=== PATIENT | male | born 1930 | race Caucasian/White ===

== ENCOUNTER → 2016-05-11 | Outpatient (CLI) | payer OTHER ==
[~2016-05-11] MED LIST: ACET-1256 PO; ASPCH81X PO; ATEN-173 PO; GALA4SOL PO; LOSA50TA54 PO; LOSA50TA6 PO; MULTTAB PO; NMN10 PO; OXYC-57 PO; SIMV10TA5 PO
== END ==
LOC: C.LABSPEC 17:47
PROVIDERS: ATTEND Nurse Practitioner Adult Health
DX: R31.9 Hematuria, unspecified (principal)

== ENCOUNTER → 2016-05-27 | Outpatient (CLI) | payer OTHER ==
[~2016-05-27] MED LIST changes: +OPTIRAY 320 IV PRN
--- NOTE | 2016-05-27 11:22 | DIAGNOSTIC IMAGING REPORT ---
CT ABD/PELVIS COMBO CLINICAL HISTORY: Hematuria. COMPARISON STUDY: None. TECHNIQUE: Unenhanced images were obtained through the abdomen and pelvis. The patient was injected with 50 cc of Optiray 320. After 5 minute delay, the patient was rescanned in a dynamic helical fashion during the additional administration of 68 cc of Optiray 320. CT DOSE: 666.17 mGy.cm FINDINGS: Lower chest: There are mild dependent atelectatic changes. Liver: The contrast-enhanced liver is normal in size, contour, and attenuation. There is no intrahepatic biliary ductal dilatation. The hepatic veins and portal veins are patent. Gallbladder: Unremarkable. Spleen: Normal in size and attenuation. Pancreas: Unremarkable. Adrenal glands: Unremarkable. Kidneys: No renal or ureteral calculi are visualized. There is a 13 mm bladder calculus. There is a 27 mm left renal cyst. No collecting system or ureteral lesions are visualized. Bowel: There are no transition zones indicate bowel obstruction. There is no evidence of acute diverticulitis. By history the appendix is surgically absent. Peritoneum: There is no intraperitoneal free air or abdominal ascites. There is a fat-containing right groin hernia. Vasculature: The abdominal aorta is normal in course and caliber. Adenopathy: None. Pelvic viscera: There is lobular enlargement of the prostate gland. Skeletal structures: No destructive osseous lesions are seen. IMPRESSION: 1. No solid renal masses identified 2. 27 mm left renal cyst 3. 13 mm bladder calculus 4. Lobular enlargement of the prostate Electronically signed by: Uriel Saldana M.D. 05/27/2016 11:21 AM Dictated Date/Time: 05/27/2016 11:14 AM
== END | disposition home or self-care (01) ==
LOC: C.CTS 10:31
PROVIDERS: ATTEND Nurse Practitioner Adult Health
DX: R31.9 Hematuria, unspecified (principal); N28.1 Cyst of kidney, acquired; N21.0 Calculus in bladder; N40.0 Benign prostatic hyperplasia without lower urinary tract symptoms

== ENCOUNTER 2016-08-16 02:20 | Emergency (ER) | payer OTHER ==
--- NOTE | 2016-08-16 02:31 | EMERGENCY ROOM VISIT NOTE ---
History Report prepared by Day: Maggy Santiago Under the Supervision of: Dr. Fei Bueno M.D. First contact with patient: 02:24 Chief Complaint: UNRESPONSIVE Stated Complaint: UNRESPONSIVE History of Present Illness The patient is a 86 year old male who presents to the Emergency Room with complaints of unresponsiveness. Limited HPI secondary to altered mental status. Lives at local nursing facility in dementia unit for years. Apparently found unresponsive to commands but making purposeful movements for EMS. Per nursing it is not uncommon for him to be irritable and non-cooperative. Source of History: EMS History Limited By: AMS Review of Systems Limited ROS secondary to AMS. Past Medical & Surgical Unable to obtain medical history sheet secondary to AMS. Family History Unable to obtain medical history sheet secondary to AMS. Social History Social History: Unable to obtain medical history sheet secondary to AMS. Current/Historical Medications Scheduled Aspirin (Aspirin Chewable), 81 MG PO DAILY Atenolol (Tenormin), 12.5 MG PO DAILY Galantamine Hydrobromide (Galantamine Hydrobromide), 3 ML PO BID Losartan Potassium (Cozaar), 50 MG PO DAILY Memantine (Namenda), 10 MG PO BID Multiple Vitamin (Tab-A-Nakia), 1 TAB PO DAILY Simvastatin (Zocor), 10 MG PO QPM Scheduled PRN Acetaminophen (Tylenol), 1 TAB PO Q4 PRN for Pain or Fever Allergies Coded Allergies: ALLERGY2 (Verified Allergy, Unknown, 05/22/16) Penicillins (Verified Allergy, Unknown, UNKNOWN, 08/16/16) Physical Exam Vital Signs Date Time Temp Pulse Resp B/P (MAP) Pulse Ox O2 Delivery O2 Flow Rate FiO2 08/16/16 06:15 58 15 158/75 95 08/16/16 05:32 147/91 08/16/16 05:07 57 22 98 08/16/16 05:02 161/66 08/16/16 04:37 64 14 96 08/16/16 04:32 160/81 08/16/16 04:07 53 13 94 08/16/16 04:02 187/87 08/16/16 03:50 61 13 95 08/16/16 03:31 163/73 08/16/16 03:20 55 16 96 08/16/16 03:02 173/70 08/16/16 02:53 55 08/16/16 02:51 189/77 08/16/16 02:20 54 18 165/72 98 Room Air Physical Exam GENERAL: Patient is elderly and non-verbal on arrival. Later talkative and in no distress. In no acute distress. Opens eyes to painful stimuli but then actively closes eyes against trying to open them. Moves extremities with purpose , though not to command. HEENT: No acute trauma, normocephalic atraumatic, mucous membranes moist, no nasal congestion, no scleral icterus. NECK: No stridor, no adenopathy, no meningismus, trachea is midline. LUNGS: No dyspnea. Clear to auscultation and equal bilaterally. No wheeze, no rhonchi. HEART: Regular rate and rhythm. No murmurs, rubs, gallops appreciated. ABDOMEN: Soft, nontender, bowel sounds positive, no masses appreciated, no peritonitis. BACK: No midline tenderness, no CVA tenderness EXTREMITIES: Normal motion all extremities, no cyanosis, no edema. NEUROLOGIC: Demented, non-verbal, no acute motor or sensory deficits, no focal weakness, cranial nerves grossly intact. SKIN: No rash, no jaundice, no diaphoresis. Medical Decision & Procedures ER Provider Diagnostic Interpretation: CT results as stated below per interpretation by me and the radiologist: CT HEAD: No acute intracranial abnormality. No ICH, mass effect or edema. Cortical atrophy and white matter changes most consistent with chronic small vessel disease. Likely remote lacunar infarct versus prominent perivascular space in the left lentiform nucleus. X ray results are stated below per my interpretation: Chest: 1 view: No infiltrate, no effusion, normal cardiac border. Laboratory Results 08/16/16 02:30 Red Blood Count 4.69, Mean Corpuscular Volume 90.6, Mean Corpuscular Hemoglobin 29.6, Mean Corpuscular Hemoglobin Concent 32.7, Mean Platelet Volume 11.4, Neutrophils (%) (Auto) 46.7, Lymphocytes (%) (Auto) 38.6, Monocytes (%) (Auto) 11.7, Eosinophils (%) (Auto) 2.7, Basophils (%) (Auto) 0.2, Neutrophils # (Auto ) 4.08, Lymphocytes # (Auto) 3.38, Monocytes # (Auto) 1.02, Eosinophils # (Auto ) 0.24, Basophils # (Auto) 0.02 08/16/16 02:30 Test 08/16/16 02:30 08/16/16 02:55 White Blood Count 8.75 K/uL (4.8-10.8) Red Blood Count 4.69 M/uL (4.7-6.1) Hemoglobin 13.9 g/dL (14.0-18.0) Hematocrit 42.5 % (42-52) Mean Corpuscular Volume 90.6 fL (80-100) Mean Corpuscular Hemoglobin 29.6 pg (25-34) Mean Corpuscular Hemoglobin Concent 32.7 g/dl (32-36) Platelet Count 187 K/uL (130-400) Mean Platelet Volume 11.4 fL (7.4-10.4) Neutrophils (%) (Auto) 46.7 % Lymphocytes (%) (Auto) 38.6 % Monocytes (%) (Auto) 11.7 % Eosinophils (%) (Auto) 2.7 % Basophils (%) (Auto) 0.2 % Neutrophils # (Auto) 4.08 K/uL (1.4-6.5) Lymphocytes # (Auto) 3.38 K/uL (1.2-3.4) Monocytes # (Auto) 1.02 K/uL (0.11-0.59) Eosinophils # (Auto) 0.24 K/uL (0-0.5) Basophils # (Auto) 0.02 K/uL (0-0.2) RDW Standard Deviation 46.9 fL (36.4-46.3) RDW Coefficient of Variation 14.2 % (11.5-14.5) Immature Granulocyte % (Auto) 0.1 % Immature Granulocyte # (Auto) 0.01 K/uL (0.00-0.02) Prothrombin Time 10.2 SECONDS (9.0-12.0) Prothromb Time International Ratio 1.0 (0.9-1.1) Activated Partial Thromboplast Time 27.5 SECONDS (21.0-31.0) Partial Thromboplastin Ratio 1.1 Anion Gap 6.0 mmol/L (3-11) Estimated GFR () 78.1 Estimated GFR (Non- 67.4 BUN/Creatinine Ratio 14.7 (10-20) Calcium Level 8.8 mg/dl (8.5-10.1) Total Bilirubin 0.5 mg/dl (0.2-1) Direct Bilirubin 0.1 mg/dl (0-0.2) Aspartate Amino Transf (AST/SGOT) 18 U/L (15-37) Alanine Aminotransferase (ALT/SGPT) 27 U/L (12-78) Alkaline Phosphatase 62 U/L (45-117) Troponin I < 0.015 ng/ml (0-0.045) Total Protein 7.1 gm/dl (6.4-8.2) Albumin 3.6 gm/dl (3.4-5.0) Urine Color YELLOW Urine Appearance CLEAR (CLEAR) Urine pH 5.5 (4.5-7.5) Urine Specific [place] 1.016 (1.000-1.030) Urine Protein NEG (NEG) Urine Glucose (UA) NEG (NEG) Urine Ketones NEG (NEG) Urine Occult Blood 2+ (NEG) Urine Nitrite NEG (NEG) Urine Bilirubin NEG (NEG) Urine Urobilinogen NEG (NEG) Urine Leukocyte Esterase SMALL (NEG) Urine WBC (Auto) 10-30 /hpf (0-5) Urine RBC (Auto) >30 /hpf (0-4) Urine Hyaline Casts (Auto) 1-5 /lpf (0-5) Urine Epithelial Cells (Auto) >30 /lpf (0-5) Urine Bacteria (Auto) 1+ (NEG) Urine Renal Epithelial Cells /lpf (0-5) Laboratory results as reviewed by me. Medications Administered Medications (Trade) Dose Ordered Sig/Yina Route Start Time Stop Time Status Last Admin Dose Admin Ceftriaxone Sodium (Rocephin Inj) 1 gm NOW STAT IV 08/16/16 04:38 08/16/16 04:39 DC 08/16/16 04:54 1 GM ECG Indication: altered mental status Rate (beats per minute): 52 Rhythm: normal sinus Findings: 1st degree AV block, no acute ischemic change, no ectopy ED Course 0400: The patient was evaluated in room A11. A complete history and physical exam was performed. 0438: Ordered Rocephin Inj 1 gm IV. 0443: The patient is awake, smiling, and states that he feels good. 0522: The patient is awake and talking. 0530: Reevaluated the patient. Discussed results and discharge instructions: He verbalized understanding and agreement. The patient is ready for discharge. Medical Decision Differential: Toxicological, Infectious, Stroke, SAH, Trauma, Electrolyte Abnormality, Hypoglycemia, Alcohol Intoxication, Drug Intoxication, Cardiac Abnormality, Sepsis, Meningitis/Encephalitis, Trauma, Excited Delirium, Serotonin Syndrome, Psychiatric, amongst other pathologies entertained. Medication Reconciliation: I attest that I have personally reviewed the patient 's current medication list. The patient is elderly and his blood pressure is being monitored at a nursing facility. 86 yr old male patient from local dementia unit nursing facility arrives for AMS. Resolved here and interacting per his baseline (ED nurse has long history of previously treating patient at [facility]). Questionable UTI though may be cause of his AMS earlier. Awake, talking and in no distress. His paperwork states DNR with no treatments however EMS note that family felt abx would be appropriate thus I gave single dose Rocephin while here and will defer continued treatment to his regular physician. Imaging unremarkable. Stable and breathing comfortably over several hours without any return to AMS. It is very clear that he is DNR thus I do no feel there is reason to keep him hospitalized for further monitoring at this time, especially given across the board decline of treatments in his DNR paperwork. Impression Primary Impression: Dementia Additional Impressions: Altered mental status Possible urinary tract infection Scribe Attestation The scribe's documentation has been prepared under my direction and personally reviewed by me in its entirety. I confirm that the note above accurately reflects all work, treatment, procedures, and medical decision making performed by me. Departure Information Dispostion Home / Self-Care Referrals Kendall Morton M.D. (PCP) Patient Instructions My [facility] Additional Instructions Large laboratory and imaging work-up done without clear cause of his symptoms earlier. There is the possibility of a UTI. While his paperwork clearly states he is DNR and does not want antibiotics, it was impressed on us that his family was OK with antibiotics, thus a single does of Rocephin was given for the possible UTI. He was awake, interactive at his normal baseline level for several hours. The physician in charge at facility will need to discuss if further antibiotic treatments are warranted. Blood pressure was elevated at this time but will defer treatment to his primary provider. Problem Qualifiers
[2016-08-16 02:40] LABS: BASO % 0.2 %; BASO ABS # 0.02 K/uL (0-0.2); COMPLETE YES; EOS % 2.7 %; HEMATOCRIT 42.5 % (42-52); IG% 0.1 %; LYMPH % 38.6 %; LYMPH ABS # 3.38 K/uL (1.2-3.4); MEAN CELL VOLUME 90.6 fL (80-100); MEAN CORPUSCULAR HEMOGLOBIN 29.6 pg (25-34); MEAN CORPUSCULAR HGB CONC 32.7 g/dl (32-36); MEAN PLATELET VOLUME 11.4 fL (7.4-10.4); MONO % 11.7 %; NEUT % 46.7 %; PLATELET COUNT 187 K/uL (130-400); RED BLOOD COUNT 4.69 M/uL (4.7-6.1); WHITE BLOOD COUNT 8.75 K/uL (4.8-10.8)
[2016-08-16 02:52] LABS: PARTIAL THROMBOPLASTIN RATIO 1.1; PROTHROMBIN TIME (PATIENT) 10.2 SECONDS (9.0-12.0)
[2016-08-16 02:58] LABS: ALT/SGPT 27 U/L (12-78); AST/SGOT 18 U/L (15-37); BLOOD UREA NITROGEN 15 mg/dl (7-18); BUN/CREATININE RATIO 14.7 (10-20); CALCIUM 8.8 mg/dl (8.5-10.1); CARBON DIOXIDE 30 mmol/L (21-32); CHLORIDE 108 mmol/L (98-107); GLUCOSE 88 mg/dl (70-99); POTASSIUM 4.1 mmol/L (3.5-5.1); SODIUM 144 mmol/L (136-145)
[2016-08-16 03:03] LABS: ALKALINE PHOSPHATASE 62 U/L (45-117)
[2016-08-16 03:06] LABS: URINE APPEARANCE CLEAR (CLEAR); URINE BILIRUBIN NEG (NEG); URINE COLOR YELLOW; URINE EPITHELIAL CELL AUTO >30 /lpf (0-5); URINE NITRITE NEG (NEG); URINE PH 5.5 (4.5-7.5); URINE SPECIFIC GRAVITY 1.016 (1.000-1.030); UROBILINOGEN NEG (NEG); ZZURINE CULT IF INDIC CATH YES
[2016-08-16 03:10] LABS: MANUAL MICROSCOPIC REQUIRED? NO; REVIEW REQ? YES
[2016-08-16] MEDS ORDERED: CEFTRIAXONE SOD INJ 1 GM ADDVIAL IV STA (04:38)
[2016-08-16] MEDS ORDERED: ATEN-173 PO (05:26)
[2016-08-16] MEDS ORDERED: ASPCH81X PO (05:26)
[2016-08-16] MEDS ORDERED: GALA4SOL PO (05:26)
[2016-08-16] MEDS ORDERED: LOSA50TA6 PO (05:27)
[2016-08-16] MEDS ORDERED: MULTTAB PO (05:27)
[2016-08-16] MEDS ORDERED: NMN10 PO (05:27)
[2016-08-16] MEDS ORDERED: SIMV10TA5 PO (05:27)
[2016-08-16] MEDS ORDERED: ACET-1256 PO (05:28)
[2016-08-16 06:15] VITALS: BP 158/75; PULSE 58; O2SAT 95
--- NOTE | 2016-08-16 07:15 | DIAGNOSTIC IMAGING REPORT ---
HEAD CT NONCONTRAST CT DOSE: 614.27 mGy.cm HISTORY: Altered mental status. TECHNIQUE: Multiaxial CT images of the head were performed without the use of intravenous contrast. Automated exposure control was utilized for this study. Comparison: None. Findings: The paranasal sinuses and mastoid air cells are clear. The calvarium and skull base are intact. There is no mass, hematoma, midline shift, acute infarct. White matter hypodensity is nonspecific but suggestive of microvascular ischemic change. The ventricles and sulci demonstrate mild age-related involutional changes. Motion artifact. Impression: No acute intracranial abnormality. Atrophy and microvascular ischemic changes. Motion artifact. Electronically signed by: Jr Wright M.D. 08/16/2016 7:14 AM Dictated Date/Time: 08/16/2016 7:12 AM
--- NOTE | 2016-08-16 08:57 | DIAGNOSTIC IMAGING REPORT ---
CHEST ONE VIEW PORTABLE HISTORY: Altered mental status. COMPARISON: None. FINDINGS: The heart is normal in size. Poststernotomy changes. No pleural effusions. No pneumothorax. Mild elevation of the right hemidiaphragm. The lungs are essentially clear. IMPRESSION: No acute process. Electronically signed by: Jr Wright M.D. 08/16/2016 8:56 AM Dictated Date/Time: 08/16/2016 8:55 AM
[2016-09-07] MEDS ORDERED: LOSA50TA54 PO (09:20)
[2016-09-21] MEDS ORDERED: OXYC-57 PO (11:35)
== END 2016-08-16 06:15 | disposition home or self-care (01) ==
LOC: EDBD 02:20 → C.ED 02:22 → C.EDA 06:15
DX: F03.90 Unspecified dementia, unspecified severity, without behavioral disturbance, psychotic disturbance, mood disturbance, and anxiety (principal); R41.82 Altered mental status, unspecified; Z66 Do not resuscitate; Z79.82 Long term (current) use of aspirin; Z79.899 Other long term (current) drug therapy

== ENCOUNTER 2016-09-21 08:52 | Day surgery (SDC) | payer OTHER ==
[2016-09-07 09:29] VITALS: BMI 28.0
[~2016-09-21] VITALS: Ht 175.3 cm; Wt 85.0 kg
[~2016-09-21 08:52] MED LIST changes: +CIPROFLOXACIN / D5W 400 MG IV SCH; +FENTANYL CITRATE INJ 50 MCG/1 ML 2 ML VIAL ONE; +LACTATED RINGER'S 1000ML 1,000 ML IV SCH; -LOSA50TA6 PO; -OPTIRAY 320 IV PRN; -OXYC-57 PO
[2016-09-21 09:14] VITALS: BMI 27.0
[2016-09-21 09:21] VITALS: Ht 175.3 cm; Wt 85.0 kg
--- NOTE | 2016-09-21 09:24 | History & Physical Bridge Note ---
H&P Re-Evaluation Bridge Note: I have examined the patient, reviewed the History & Physical and in the interval since the performance of the History & Physical I have noted the following changes of clinical significance: No changes noted
[2016-09-21] MEDS ORDERED: DEXAMETHASONE SOD INJ 4 MG/ML VIAL ONE (10:25)
[2016-09-21] MEDS ORDERED: EpHEDrine SULFATE INJ 50 MG/ML AMP ONE (10:25)
[2016-09-21] MEDS ORDERED: LIDOCAINE HCL 2% 2 ML VIAL (20MG/ML) ONE (10:25)
[2016-09-21] MEDS ORDERED: ONDANSETRON INJ 2 MG/ML 2 ML VIAL ONE (10:25)
[2016-09-21] MEDS ORDERED: PROPOFOL IV EMULSION 10 MG/ML 20 ML VIAL IV ONE (10:25)
[2016-09-21] MEDS ORDERED: HYDROmorphone INJ 1 MG/ML SYR IV PRN (10:45)
[2016-09-21] MEDS ORDERED: EpHEDrine SULFATE INJ 50 MG/ML AMP IV PRN (10:45)
[2016-09-21] MEDS ORDERED: MEPERIDINE HCL 25 MG/ML CARP IV PRN (10:45)
[2016-09-21] MEDS ORDERED: ONDANSETRON INJ 2 MG/ML 2 ML VIAL IV PRN (10:45)
[2016-09-21] MEDS ORDERED: FENTANYL CITRATE INJ 50 MCG/1 ML 2 ML VIAL IV PRN (10:45)
[2016-09-21] MEDS ORDERED: LABETALOL HCL IV 5 MG/ML 20ML IV PRN (10:45)
[2016-09-21] MEDS ORDERED: ATROPINE SULFATE 0.1 MG/ML 5ML SYR IV PRN (10:45)
--- NOTE | 2016-09-21 11:23 | [facility] Post Operative Brief Note ---
Immediate Operative Summary Operative Date Sep 21, 2016. Pre-Operative Diagnosis Bladder calculus, bladder neoplasm Post-Operative Diagnosis Bladder calculus, bladder neoplasm Procedure(s) Performed Cystolithopaxy Surgeon Dr Juan Salazar Drier Operator Surgeon(s) None Estimated Blood Loss 5cc Findings bladder stone Specimens none as per surgeon Drains funez 20 f Anesthesia gen Complication(s) None Disposition Recovery Room / PACU
--- NOTE | 2016-09-21 11:24 | Discharge Instructions ---
Discharge Instructions Date of Service Sep 21, 2016. Visit Reason for Visit: Bladder Stone; Hematuria Discharge Discharge Diagnosis / Problem: bladder stone Discharge Goals Goal(s): Therapeutic intervention Activity Recommendations Activity Limitations: resume your previous activity (take it easy today) Anesthesia . Post Anesthesia Instructions: If you have had General Anesthesia or IV Sedation: * Do not drive today. * Resume driving when surgeon permits. * Do not make important decisions or sign legal documents today. * Call surgeon for: 1. Temperature elevations greater than 101 degrees F. 2. Uncontrollable pain. 3. Excessive bleeding. 4. Persistent nausea and vomiting. 5. Medication intolerance (nausea, vomiting or rash). * For nausea and vomiting use only clear liquids such as: tea, soda, bouillon until nausea subsides, then gradually increase diet as tolerated. * If you have any concerns or questions, call your surgeon's office. If physician is unavailable and it is an emergency, call 911 or go to the nearest emergency room. . Diet Recommendations Recommended Home Diet: resume previous diet Procedures Procedures Performed: Cystolithopaxy Pending Studies Studies pending at discharge: no Medical Emergencies . Who to Call and When: Medical Emergencies: If at any time you feel your situation is an emergency, please call 911 immediately. . Non-Emergent Contact Non-Emergency issues call your: Urologist . . "Provider Documentation" section prepared by Juan Salazar. .
[2016-09-21] MEDS ORDERED: OXYCODONE/ACETAMINOPHEN 5-325 TAB PO PRN (11:30)
[2016-09-21] MEDS ORDERED: OXYC-57 PO (11:35)
[2016-09-21 12:11] VITALS: BP 129/68; PULSE 76; TEMP 36.5; O2SAT 100
--- NOTE | 2016-09-21 12:20 | Anesthesiology Progress Note ---
Anesthesia Post Op Note Date & Time Sep 21, 2016 at 12:20 Vital Signs Pain Intensity: 0 Vital Signs Past 12 Hours Date Time Temp Pulse Resp B/P (MAP) Pulse Ox O2 Delivery O2 Flow Rate FiO2 09/21/16 12:00 36.1 65 18 129/66 97 Room Air 09/21/16 11:50 70 14 127/75 95 Room Air 09/21/16 11:40 83 14 127/63 100 Oxymask 10 09/21/16 11:30 61 14 115/59 98 Oxymask 10 09/21/16 11:22 36.1 61 14 116/59 98 Oxymask 10 Notes Mental Status: alert / awake / arousable, participated in evaluation Pt Amnestic to Procedure: Yes Nausea / Vomiting: adequately controlled Pain: adequately controlled Airway Patency, RR, SpO2: stable & adequate BP & HR: stable & adequate Hydration State: stable & adequate Anesthetic Complications: no major complications apparent
[2016-09-21 12:41] VITALS: BP 125/62; PULSE 70; O2SAT 100
[2016-09-21 13:11] VITALS: BP 151/74; PULSE 75; O2SAT 100
--- NOTE | 2016-09-21 13:24 | OPERATIVE REPORT ---
DATE OF OPERATION: 09/21/2016 PREOPERATIVE DIAGNOSES: Gross hematuria, bladder stone, and question of bladder tumor. POSTOPERATIVE DIAGNOSES: Gross hematuria and bladder stone. PROCEDURES: Cystoscopy and cystolitholapaxy. FINDINGS: The patient had a stone in the bladder. There were no obvious bladder tumor seen. Bladder showed 2+ trabeculation with cellules. There was obstruction from the prostate, especially the elevated median lobe. SURGEON: Dr. Juan Salazar. ANESTHESIA: General. DRAINS: 20-[place] Young catheter in bladder. COMPLICATIONS: None. SPECIMENS: Bladder stone fragments. INDICATIONS: The patient is an 86-year-old white male who on workup for hematuria was found to have a bladder stone and there was a question of a bladder tumor. He is being brought in now for treatment. DESCRIPTION OF PROCEDURE: After the induction of an adequate general anesthetic and appropriate time-out, the patient's lower abdomen and genitalia were prepped with Hibiclens and draped in a sterile fashion. Using a 22-[place] cystoscope, routine cystoscopic exam was performed with the above noted findings with the 30 and 70 degree lenses. Next, using a 24-[place] resection scope and 1000 micron holmium laser fiber, the stone was broken into multiple small pieces, which were then evacuated with an Fewzion evacuator. Any bleeding points were electrocoagulated with roller ball. Care was taken to avoid injury to the ureteral orifices. After removing all the stone fragments, the bladder was reinspected. There were no obvious bladder tumors seen. The patient's bladder was filled. The scope was removed and a 20-[place] Coude catheter was passed per urethra into the bladder and hooked to gravity drainage. The catheter will be removed before he goes home. All needle, sponge and instrument counts were correct at the end of the case. The patient tolerated the procedure well and went to the recovery room in stable condition. I attest to the content of the Intraoperative Record and any orders documented therein. Any exception s are noted below.
== END 2016-09-21 13:46 | disposition home or self-care (01) ==
LOC: C.ACU 08:52
PROVIDERS: ATTEND Urology
DX: N21.0 Calculus in bladder (principal); G30.9 Alzheimer's disease, unspecified; F02.80 Dementia in other diseases classified elsewhere, unspecified severity, without behavioral disturbance, psychotic disturbance, mood disturbance, and anxiety; I25.10 Atherosclerotic heart disease of native coronary artery without angina pectoris; I10 Essential (primary) hypertension; E78.00 Pure hypercholesterolemia, unspecified; I35.9 Nonrheumatic aortic valve disorder, unspecified; Z79.82 Long term (current) use of aspirin; Z79.899 Other long term (current) drug therapy

== ENCOUNTER 2017-02-07 23:04 | Emergency (ER) | payer OTHER ==
[~2017-02-07] VITALS: Ht 172.7 cm; Wt 64.0 kg
[~2017-02-07 23:04] MED LIST changes: -CIPROFLOXACIN / D5W 400 MG IV SCH; -FENTANYL CITRATE INJ 50 MCG/1 ML 2 ML VIAL ONE; -LACTATED RINGER'S 1000ML 1,000 ML IV SCH; +OXYC-57 PO
[2017-02-07 23:11] VITALS: TEMP 36.7; Ht 172.7 cm; Wt 64.0 kg
[2017-02-07] MEDS ORDERED: NUTR-977 PO (23:21)
--- NOTE | 2017-02-07 23:26 | EMERGENCY ROOM VISIT NOTE ---
History Report prepared by Day: Manuel Chawla Under the Supervision of: Dr. Fei Bueno M.D. First contact with patient: 23:12 Chief Complaint: BLEEDING Stated Complaint: BLOOD DISCHARGE/PENIS, [facility] Nursing Triage Summary: Patient arrived via EMS from [facility]. Staff at the facility report that the patient has had bleeding out of his urethra without urniation. Patient has a history of protate cancer and dementia. History of Present Illness The patient is an 86 year old male who presents to the Emergency Room with complaints of persistent bleeding from his penis occurring earlier tonight. The nursing staff state that the patient has bleeding with and without urination. History is limited secondary to dementia. Source of History: nursing staff History Limited By: dementia Onset: earlier tonight Position: other (penis) Quality: other (bleeding) Timing: other (persistent) Review of Systems HPI is limited secondary to dementia. Past Medical & Surgical Medical Problems: (1) Bladder cancer Social History Smoking Status: Never Smoker Marital Status: single Housing Status: intermediate Occupation Status: retired Current/Historical Medications Scheduled Aspirin (Aspirin Chewable), 81 MG PO DAILY Atenolol (Tenormin), 12.5 MG PO DAILY Enteral Nutrition Formula (Ensure Plus Vanilla), 1 CAN PO BID Galantamine Hydrobromide (Galantamine Hydrobromide), 3 ML PO BID Losartan Potassium (Cozaar), 50 MG PO DAILY Memantine (Namenda), 10 MG PO BID Multiple Vitamin (Tab-A-Nakia), 1 TAB PO DAILY Simvastatin (Zocor), 10 MG PO QPM Scheduled PRN Acetaminophen (Tylenol), 1 TAB PO Q4 PRN for Pain or Fever Oxycodone/Acetaminophen 5MG/325MG (Percocet 5MG/325MG), 1 TABLET PO Q4H PRN for Pain Allergies Coded Allergies: Penicillins (Verified Allergy, Unknown, UNKNOWN, 02/07/17) OCCURED A CHILD. Physical Exam Vital Signs Date Time Temp Pulse Resp B/P (MAP) Pulse Ox O2 Delivery O2 Flow Rate FiO2 02/08/17 01:32 142/95 02/08/17 01:13 69 97 Room Air 02/07/17 23:11 36.7 75 16 132/85 95 Room Air Physical Exam GENERAL: Demented. No distress. Happily playing with gloves. HEENT: No acute trauma, normocephalic atraumatic, mucous membranes moist, no nasal congestion, no scleral icterus. NECK: No stridor, no adenopathy, no meningismus, trachea is midline. LUNGS: No dyspnea. Clear to auscultation and equal bilaterally. No wheeze, no rhonchi. HEART: Regular rate and rhythm. No murmurs, rubs, gallops appreciated. ABDOMEN: Soft, nontender, bowel sounds positive, no masses appreciated, no peritonitis. BACK: No midline tenderness, no CVA tenderness : Circumcised male. Small amount of blood on diaper. No blood at meatus. No lacerations or abrasions. No irritation. No swelling. No tenderness. EXTREMITIES: Normal motion all extremities, no cyanosis, no edema. NEUROLOGIC: Alert and oriented, no acute motor or sensory deficits, no focal weakness, cranial nerves grossly intact. SKIN: No rash, no jaundice, no diaphoresis. Medical Decision & Procedures ER Provider Diagnostic Interpretation: X ray results are stated below per my interpretation: One View KUB: Small density in the right mid pelvis similar to previous imaging. Previous large bladder stone is no longer visible. Mild constipation. No obstructive findings. Laboratory Results Test 02/07/17 23:35 Urine Color ORANGE Urine Appearance CLEAR (CLEAR) Urine pH 6.5 (4.5-7.5) Urine Specific [place] 1.012 (1.000-1.030) Urine Protein TRACE (NEG) Urine Glucose (UA) NEG (NEG) Urine Ketones NEG (NEG) Urine Occult Blood 3+ (NEG) Urine Nitrite NEG (NEG) Urine Bilirubin NEG (NEG) Urine Urobilinogen NEG (NEG) Urine Leukocyte Esterase LARGE (NEG) Urine WBC (Auto) >30 /hpf (0-5) Urine RBC (Auto) >30 /hpf (0-4) Urine Hyaline Casts (Auto) 0 /lpf (0-5) Urine Epithelial Cells (Auto) >30 /lpf (0-5) Urine Bacteria (Auto) NEG (NEG) Urine Renal Epithelial Cells /lpf (0-5) Urine Pathogenic Casts /lpf (0) Laboratory results as reviewed by me. ED Course 2312: The patient was evaluated in room C7. A complete history and physical exam was performed. 0132: The patient is to be discharged home. Medical Decision Pleasantly demented 86 yr old male arrives due to blood noted from penis. No blood in meatus at this time nor lacerations/abrasions appreciated. There is small amount of blood in his diaper consistent with recent penile bleeding. UA clear without clotting. No evidence infection. KUB without new stone noted. Patient happy, comfortable and in no distress. Unclear exact cause bleed though could have been traumatic by patient though no current evidence of injury nor bleeding. May have been he passed another stone like previous episode. Medication Reconcilliation Current Medication List: was personally reviewed by me Blood Pressure Screening Patient's blood pressure: Normal blood pressure Impression Primary Impression: Penile bleeding Scribe Attestation The scribe's documentation has been prepared under my direction and personally reviewed by me in its entirety. I confirm that the note above accurately reflects all work, treatment, procedures, and medical decision making performed by me. Departure Information Dispostion Other ([facility]) Referrals Kendall Morton M.D. (PCP) Forms HOME CARE DOCUMENTATION FORM, IMPORTANT VISIT INFORMATION Patient Instructions My [facility] Additional Instructions There was noted some blood in diaper, however with straight cath urine is clear without hematuria. No evidence of laceration/infection at this time. Monitor and if continued he may need Urologist evaluation. Return if heavy bleeding, vomiting, fevers, no urination or other concerns.
[2017-02-08 00:08] LABS: URINE APPEARANCE CLEAR (CLEAR); URINE BILIRUBIN NEG (NEG); URINE COLOR ORANGE; URINE EPITHELIAL CELL AUTO >30 /lpf (0-5); URINE NITRITE NEG (NEG); URINE PH 6.5 (4.5-7.5); URINE SPECIFIC GRAVITY 1.012 (1.000-1.030); UROBILINOGEN NEG (NEG); ZZURINE CULT IF INDIC CATH YES
[2017-02-08 00:17] LABS: MANUAL MICROSCOPIC REQUIRED? NO; REVIEW REQ? YES
[2017-02-08 01:13] VITALS: PULSE 69; O2SAT 97
[2017-02-08 01:32] VITALS: BP 142/95
--- NOTE | 2017-02-08 06:38 | DIAGNOSTIC IMAGING REPORT ---
[facility]UB CLINICAL HISTORY: Hematuria. History of bladder calculi. COMPARISON STUDY: CT scan dated 05/27/2016 FINDINGS: There is no pathologic bowel dilatation. There is a shallow calcification within the right upper quadrant which on the prior CT scan represent a vascular calcification. No renal calculi are visualized. No ureteral or bladder calculi are visualized on conventional radiographic imaging. The previously identified bladder calculus is not visualized. IMPRESSION: 1. No evidence of pathologic bowel dilatation 2. No urinary tract calculi are visualized on conventional radiographic imaging Electronically signed by: Uriel Saldana M.D. 02/08/2017 6:37 AM Dictated Date/Time: 02/08/2017 6:36 AM
== END 2017-02-08 01:33 ==
LOC: EDBD 23:04 → C.EDC 23:11
DX: N48.89 Other specified disorders of penis (principal); F03.90 Unspecified dementia, unspecified severity, without behavioral disturbance, psychotic disturbance, mood disturbance, and anxiety; Z79.82 Long term (current) use of aspirin